=== PATIENT | female | born 1990 | race Caucasian/White ===

== ENCOUNTER 2018-07-29 12:16 | Emergency (ER) | payer SELFPAY ==
[~2018-07-29] VITALS: Ht 167.6 cm; Wt 82.6 kg
[2018-07-29 12:57] LABS: BASO % 0 % (0-3); EOS # 0.1 x10^3/uL (0.0-0.7); EOS % 2 % (0-3); HEMATOCRIT 44.6 % (36.0-47.0); HEMOGLOBIN 15.2 g/dL (12.0-15.5); LYMPH # 2.3 x10^3/uL (1.0-4.8); LYMPH % 34 % (24-48); MEAN CORPUSCULAR HEMOGLOBIN 32 pg (25-35); MEAN CORPUSCULAR HGB CONC 34 g/dL (31-37); MEAN CORPUSCULAR VOLUME 93 fL (79-100); MONO # 0.4 x10^3/uL (0.0-1.1); MONO % 6 % (0-9); NEUT # 3.9 x10^3uL (1.8-7.7); NEUT % 57 % (31-73); PLATELET COUNT 209 x10^3/uL (140-400); RED CELL DISTRIBUTION WIDTH 13.4 % (11.5-14.5); WHITE BLOOD COUNT 6.8 x10^3/uL (4.0-11.0)
--- NOTE | 2018-07-29 13:04 | RAD ---
CT HEAD WO CONTRAST History: NUMBNESS IN HANDS Comparison: None. Technique: Noncontrast CT imaging was performed of the head. Exposure: One or more of the following individualized dose reduction techniques were utilized for this examination: 1. Automated exposure control 2. Adjustment of the mA and/or kV according to patient size 3. Use of iterative reconstruction technique. Findings: No acute intracranial hemorrhage is identified. There is no intra-axial mass effect or midline shift. 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 Ventricular size is within normal limits. Visualized paranasal sinuses and mastoid air cells are aerated. Impression: 1. No acute intracranial hemorrhage is identified. 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 Electronically signed by: Kalyan Quiñones MD (07/29/2018 1:00 PM) [id number]
[2018-07-29 13:06] LABS: BARBITURATES NEG (NEG); BENZODIAZEPINES NEG (NEG); CANNABINOIDS NEG (NEG); COCAINE NEG (NEG); METHADONE NEG (NEG); OPIATES NEG (NEG); PHENCYCLIDINE NEG (NEG)
[2018-07-29 13:07] LABS: AMPHETAMINE/METHAMPHETAMINE NEG (NEG)
--- NOTE | 2018-07-29 13:11 | PHYS DOC ---
Past History Past Medical History: Migraines Past Surgical History: Other Alcohol Use: None Drug Use: None Adult General Chief Complaint Chief Complaint: DIZZY/LIGHT HEADED HPI HPI 28-year-old female presents with paresthesias. The patient has had intermittent bilateral hand paresthesias for several weeks. These have been minor and the patient has not been that concerned with it. She had a more severe episode couple weeks ago when the emergency room was diagnosed with dehydration and fatigue. 2 days ago the patient went to a primary physician with headaches and similar paresthesia it is intermittent. She was diagnosed with migraine variant and placed on Topamax. The patient took Topamax for 2 days. One hour prior to arrival, the patient had a more severe episode of paresthesia in her bilateral hands up her elbows as well as a feeling of upper facial numbness. The symptoms have mostly resolved at this time. She still has some slight tingling in her bilateral hands. She states feeling "foggy" overall. She denies fever or chills. She does have poor dentition, but does not feel that she has current abscesses. She has had some in the past. Review of Systems Review of Systems Constitutional: Denies fever or chills [] Eyes: Denies change in visual acuity, redness, or eye pain [] HENT: Denies nasal congestion or sore throat [] Respiratory: Denies cough or shortness of breath [] Cardiovascular: No additional information not addressed in HPI [] GI: Denies abdominal pain, nausea, vomiting, bloody stools or diarrhea [] : Denies dysuria or hematuria [] Musculoskeletal: Denies back pain or joint pain [] Integument: Denies rash or skin lesions [] Neurologic: Upper extremity and face numbness/tingling[] Endocrine: Denies polyuria or polydipsia [] All other systems were reviewed and found to be within normal limits, except as documented in this note. Physical Exam Physical Exam Constitutional: Well developed, well nourished, no acute distress, non-toxic appearance. [] HENT: Normocephalic, atraumatic, bilateral external ears normal, oropharynx moist, no oral exudates, nose normal. [] Eyes: PERRLA, EOMI, conjunctiva normal, no discharge. [] Neck: Normal range of motion, no tenderness, supple, no stridor. [] Cardiovascular:Heart rate regular rhythm, no murmur [] Lungs & Thorax: Bilateral breath sounds clear to auscultation [] Abdomen: Bowel sounds normal, soft, no tenderness, no masses, no pulsatile masses. [] Skin: Warm, dry, no erythema, no rash. [] Back: No tenderness, no CVA tenderness. [] Extremities: No tenderness, no cyanosis, no clubbing, ROM intact, no edema. [] Neurologic: Alert and oriented X 3, normal motor function, normal sensory function, no focal deficits noted. [] Psychologic: Affect normal, judgement normal, mood anxious. [] Current Patient Data Vital Signs Vital Signs Date Time Temp Pulse Resp B/P (MAP) Pulse Ox O2 Delivery O2 Flow Rate FiO2 07/29/18 12:20 98.0 97 22 98 Room Air Lab Results Laboratory Tests Test 07/29/18 12:30 07/29/18 12:41 Urine Opiates Screen Neg (NEG) Urine Methadone Screen Neg (NEG) Urine Barbiturates Neg (NEG) Urine Phencyclidine Screen Neg (NEG) Urine Amphetamine/Methamphetamine Neg (NEG) Urine Benzodiazepines Screen Neg (NEG) Urine Cocaine Screen Neg (NEG) Urine Cannabinoids Screen Neg (NEG) Urine Ethyl Alcohol Neg (NEG) White Blood Count 6.8 x10^3/uL (4.0-11.0) Red Blood Count 4.80 x10^6/uL (3.50-5.40) Hemoglobin 15.2 g/dL (12.0-15.5) Hematocrit 44.6 % (36.0-47.0) Mean Corpuscular Volume 93 fL (79-100) Mean Corpuscular Hemoglobin 32 pg (25-35) Mean Corpuscular Hemoglobin Concent 34 g/dL (31-37) Red Cell Distribution Width 13.4 % (11.5-14.5) Platelet Count 209 x10^3/uL (140-400) Neutrophils (%) (Auto) 57 % (31-73) Lymphocytes (%) (Auto) 34 % (24-48) Monocytes (%) (Auto) 6 % (0-9) Eosinophils (%) (Auto) 2 % (0-3) Basophils (%) (Auto) 0 % (0-3) Neutrophils # (Auto) 3.9 x10^3uL (1.8-7.7) Lymphocytes # (Auto) 2.3 x10^3/uL (1.0-4.8) Monocytes # (Auto) 0.4 x10^3/uL (0.0-1.1) Eosinophils # (Auto) 0.1 x10^3/uL (0.0-0.7) Basophils # (Auto) 0.0 x10^3/uL (0.0-0.2) EKG EKG [] Radiology/Procedures Radiology/Procedures [] Impressions: CT HEAD WO CONTRAST History: NUMBNESS IN HANDS Comparison: None. Technique: Noncontrast CT imaging was performed of the head. Exposure: One or more of the following individualized dose reduction techniques were utilized for this examination: 1. Automated exposure control 2. Adjustment of the mA and/or kV according to patient size 3. Use of iterative reconstruction technique. Findings: No acute intracranial hemorrhage is identified. There is no intra-axial mass effect or midline shift. 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 Ventricular size is within normal limits. Visualized paranasal sinuses and mastoid air cells are aerated. Impression: 1. No acute intracranial hemorrhage is identified. 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 Electronically signed by: Estrella Wallace MD (07/29/2018 1:00 PM) [facility] DICTATED AND SIGNED BY: ESTRELLA WALLACE MD DATE: 07/29/18 [id number] CC: LUCRECIA HERCULES DO; ЕКАТЕРИНА GRAFF DO Course & Med Decision Making Course & Med Decision Making Pertinent Labs and Imaging studies reviewed. (See chart for details) Patient's labs are unremarkable. Her head CT showed possible cerebellar tonsillar ectopia. I discussed the case with Dr. Ramirez, neurologist and he does not believe the patient needs to be admitted. He would like to see her as an outpatient. I have provided his office phone number and her discharge instructions. She is stable for discharge at this time. [] Dragon Disclaimer Dragon Disclaimer This electronic medical record was generated, in whole or in part, using a voice recognition dictation system. Departure Departure: Referrals: ЕКАТЕРИНА GRAFF DO (PCP) LUCRECIA HERCULES DO Jul 29, 2018 13:11
[2018-07-29 13:13] LABS: ALBUMIN 4.1 g/dL (3.4-5.0); ALBUMIN/GLOBULIN RATIO 1.2 (1.0-1.7); CALCIUM 9.2 mg/dL (8.5-10.1); CREATININE 0.7 mg/dL (0.6-1.0); GFR 100.4; POTASSIUM 3.5 mmol/L (3.5-5.1); TOTAL BILIRUBIN 0.5 mg/dL (0.2-1.0); TOTAL PROTEIN 7.6 g/dL (6.4-8.2)
[2018-07-29 13:14] LABS: BILIRUBIN,URINE NEG (NEG); CLARITY,URINE CLEAR; COLOR,URINE STRAW; GLUCOSE,URINE NEG (NEG); UROBILINOGEN,URINE 0.2 mg/dL (0.2 mg/dL)
[2018-07-29 13:15] LABS: BACTERIA,URINE FEW /HPF (0-FEW); NITRITE,URINE NEG (NEG); RBC,URINE 0 /HPF (0-2); SQUAMOUS EPITHELIAL CELL,UR FEW /LPF; WBC,URINE RARE /HPF (0-4)
[2018-07-29 14:42] VITALS: BP 148/92
== END 2018-07-29 14:30 | disposition home or self-care (01) ==
LOC: ER 12:16
DX: R20.2 Paresthesia of skin (principal); G43.909 Migraine, unspecified, not intractable, without status migrainosus
CPT/HCPCS: 36415; 70450; 80053; 80307; 81001; 85025; 99284-25

== ENCOUNTER 2018-08-04 10:35 | Emergency (ER) | payer SELFPAY ==
[~2018-08-04] VITALS: Ht 167.6 cm; Wt 84.0 kg
--- NOTE | 2018-08-04 11:28 | PHYS DOC ---
Past History Past Medical History: No Pertinent History Past Surgical History: Tonsillectomy, Other Alcohol Use: None Drug Use: None Adult General Chief Complaint Chief Complaint: MULTIPLE COMPLAINTS HPI HPI Patient is a 28-year-old female who presents to the emergency department for evaluation. She states that for the past several weeks she has been having intermittent episodes of paresthesias in her upper extremities bilaterally which seemed to be associated with position changes, going from laying to standing. She states that this morning, she had an episode that occurred when she was just laying on the couch. She came to the emergency department for evaluation. She was seen in the emergency department about a week ago and underwent a fairly extensive workup, including blood testing, as well as brain imaging, which was essentially negative, except for cerebellar tonsillar ectopia. The patient has not had any recent headaches. She states that she has had weakness in her left arm for the past several years after delivering her last child, but is not having any new symptoms currently. Her paresthesias, which prompted her visit to the emergency department today, have resolved. She is currently asymptomatic. She did see the neurologist after her last ER visit, who referred her to the emergency department today because the patient's mother called and said that her daughter was having strokelike symptoms. She has not had any lateralizing weakness. The patient states she does hyperventilate at times after these episodes, but does not have a previously diagnosed history of anxiety. Review of Systems Review of Systems Constitutional: Denies fever or chills [] Eyes: Denies change in visual acuity, redness, or eye pain [] HENT: Denies nasal congestion or sore throat [] Respiratory: Denies cough or shortness of breath [] Cardiovascular:The patient denies any shortness of breath, chest pain, palpitations, or orthopnea [] GI: Denies abdominal pain, nausea, vomiting, bloody stools or diarrhea [] : Denies dysuria or hematuria [] Musculoskeletal: Denies back pain or joint pain [] Integument: Denies rash or skin lesions [] Neurologic: As per history of present illness, otherwise negative [] Endocrine: Denies polyuria or polydipsia [] All other systems were reviewed and found to be within normal limits, except as documented in this note. Allergies Allergies Allergies Coded Allergies Type Severity Reaction Last Updated Verified Penicillins Allergy Intermediate vomiting 08/04/18 Yes Physical Exam Physical Exam PHYSICAL EXAM: CONSTITUTIONAL: Well developed, well nourished HEAD: normocephalic, atraumatic EENT: PERRL, EOMI. Conjunctivae normal color, sclerae non-icteric; moist mucous membranes. NECK: Supple, non-tender; no meningismus. There are no carotid bruits. LUNGS: Lungs CTA, breathing even and unlabored. Normal air movement. HEART: Regular rate and rhythm, no murmur CHEST: No deformity; non-tender ABDOMEN: The abdomen is soft, and non-tender, no masses or bruits. EXTREM: Normal ROM; no deformity, no calf tenderness. Normal pulses palpable in all extremities. There is no pedal edema. SKIN: No rash; no diaphoresis NEURO: Alert; normal speech and cognition; CN's grossly intact; strength grossly intact without focal deficit. Pinprick sensation is intact and symmetrical in all extremities. Reflexes are normal. BACK: No CVA TTP. Current Patient Data Vital Signs Vital Signs Date Time Temp Pulse Resp B/P (MAP) Pulse Ox O2 Delivery O2 Flow Rate FiO2 08/04/18 10:46 98.4 115 18 100 Room Air EKG EKG [] Radiology/Procedures Radiology/Procedures [] Course & Med Decision Making Course & Med Decision Making Patient's notes and test results from her recent ER visit have been reviewed. I also spoke with Dr. Obregon, the neurologist who has seen the patient after her last ER visit and the center to the emergency department today. We discussed the patient's care. He states he believes the patient needs an MRI, although as today, her neurological exam when he saw her was normal. He does not highly suspect that the cerebellar tonsillar ectopia is related to the patient's symptoms. The fact that she is having bilateral paresthesias make an ischemic etiology unlikely, especially given the patient's young age and lack of risk factors. I do not believe that any emergency testing is warranted at this time, given the essentially unremarkable workup of the patient recently had, and the time course of her symptoms progressing over several weeks. She is currently asymptomatic as well. I did discuss the importance of continued follow-up with her neurologist for further outpatient imaging and evaluation and return precautions. Dragon Disclaimer Dragon Disclaimer This electronic medical record was generated, in whole or in part, using a voice recognition dictation system. Departure Departure: Impression: Primary Impression: Paresthesias Disposition: 01 HOME, SELF-CARE Condition: STABLE Referrals: ЕКАТЕРИНА GRAFF DO (PCP) RUPA OBREGON MD Patient Instructions: Paresthesia Additional Instructions: Further outpatient evaluation is warranted. Additionally, outpatient imaging, such as brain MRI, is likely indicated. Please contact your neurologist office to arrange further evaluation. Return to medical care for any new or worsening symptoms, development of new muscle weakness, vision changes, each difficulty, or any other new, or concerning symptoms. CONCHIS DAILY MD Aug 04, 2018 11:28
[2018-08-04 12:56] VITALS: BP 106/70
== END 2018-08-04 12:56 | disposition home or self-care (01) ==
LOC: ER 10:35
DX: R20.2 Paresthesia of skin (principal); R53.1 Weakness; Z88.0 Allergy status to penicillin
CPT/HCPCS: 99281

== ENCOUNTER → 2020-10-05 | Outpatient (CLI) | payer MEDICAID, OTHER ==
--- NOTE | 2020-10-05 13:59 | RAD ---
Examination: Bilateral Limited breast ultrasound. INDICATION: 30-year-old non 1 presents for imaging evaluation of bilateral areas of palpable tenderness present for the past 3 months. Since initial observation, she reports the right breast is no longer tender but still palpable (but decreasing in size) while the left breast is no longer palpa ble but still exhibits residual soreness. No family history of breast malignancy. COMPARISON: None. TECHNIQUE: Targeted ultrasound of both breasts in the areas of clinical concern as reported by the pa tient was warned including ultrasound of the retroareolar and axillary regions of both breasts. FINDINGS: In the right breast, the area of residual palpable concern correlates with increased echogenicity to a superficial fat lobule measuring 2.7 x 0.5 x 2.0 cm. This shows no internal vascularity. Subareolar right breast and right axilla are sonographically unremarkable. In the left breast, no sonographic findings are identified. Boat Hoist Operator images of the patient's re ported area of concern spanning the 12-2 o'clock positions were obtained. The left subareolar breast and axilla were unremarkable. IMPRESSION: Benign sonographic findings on targeted ultrasound of both breasts. No evidence of malignancy. BI-RADS category 2 Benign findings Recommend clinical management which may include biopsy if there are any clinically suspicious finding s. In the absence of any clinically suspicious findings, recommend age-appropriate routine screening, st arting at age 40 in average risk women. Electronically signed by: Rob England MD (10/05/2020 1:57 PM) [id number]
== END ==
LOC: US 12:45
PROVIDERS: ATTEND Family Medicine
DX: R92.8 Other abnormal and inconclusive findings on diagnostic imaging of breast (principal)
CPT/HCPCS: 76641

== ENCOUNTER 2020-12-22 13:12 | Emergency (ER) | payer OTHER ==
[~2020-12-22] VITALS: Ht 167.6 cm; Wt 84.0 kg
--- NOTE | 2020-12-22 13:38 | EKG ---
[address] [address] Test Date: 2020-12-22 Test Time: 13:16:48 Pat Name: NOAH CASON Department: Room: Gender: F Sample Dye Mixer: STEVE : 1990 Requested By: CYRIL BRITO Order Number: [id number] Reading MD: Measurements Intervals Garner Rate: 108 P: 38 TN: 144 QRS: 52 QRSD: 64 T: 70 QT: 332 QTc: 449 Interpretive Statements SINUS TACHYCARDIA NO SPECIFIC ECG ABNORMALITIES RI6.02 No previous ECG available for comparison
[2020-12-22 13:51] LABS: BASO % 1 % (0-3); EOS # 0.1 x10^3/uL (0.0-0.7); EOS % 2 % (0-3); HEMATOCRIT 45.3 % (36.0-47.0); HEMOGLOBIN 15.5 g/dL (12.0-15.5); LYMPH # 3.2 x10^3/uL (1.0-4.8); LYMPH % 51 % (24-48); MEAN CORPUSCULAR HEMOGLOBIN 32 pg (25-35); MEAN CORPUSCULAR HGB CONC 34 g/dL (31-37); MEAN CORPUSCULAR VOLUME 94 fL (79-100); MONO # 0.4 x10^3/uL (0.0-1.1); MONO % 6 % (0-9); NEUT # 2.6 x10^3uL (1.8-7.7); NEUT % 41 % (31-73); PLATELET COUNT 185 x10^3/uL (140-400); RED BLOOD COUNT 4.83 x10^6/uL (3.50-5.40); RED CELL DISTRIBUTION WIDTH 12.9 % (11.5-14.5); WHITE BLOOD COUNT 6.3 x10^3/uL (4.0-11.0)
[2020-12-22 13:59] LABS: CALCIUM 9.4 mg/dL (8.5-10.1); CREATININE 0.6 mg/dL (0.6-1.0); GFR 118.2; POTASSIUM 3.7 mmol/L (3.5-5.1)
[2020-12-22 14:05] LABS: ALBUMIN/GLOBULIN RATIO 1.3 (1.0-1.7); TOTAL BILIRUBIN 0.7 mg/dL (0.2-1.0); TOTAL PROTEIN 7.2 g/dL (6.4-8.2)
--- NOTE | 2020-12-22 14:18 | RAD ---
EXAMINATION: XR CHEST 2V CLINICAL HISTORY: Chest tightness EXAM DATE/TIME: 12/22/2020 1:58 PM COMPARISON: None FINDINGS: Lines, Tubes, and Devices: None. Cardiomediastinal Silhouette: Within normal limits. Lungs and Pleura: No evidence of focal airspace consolidation or pleural effusion. Pulmonary vasculat ure unremarkable. Bones and Soft Tissues: No acute osseous abnormality. IMPRESSION: No evidence of acute cardiopulmonary abnormality. Electronically signed by: Fuad Warren DO (12/22/2020 2:16 PM) [id number]
--- NOTE | 2020-12-22 14:22 | RAD ---
EXAMINATION: CT HEAD AND C-SPINE WO CLINICAL HISTORY: Near syncope, extremity tingling TECHNIQUE: Serial axial images without IV contrast were obtained from the vertex to the foramen magnum. CT of the cervical spine without IV contrast. Spiral, high resolution axial images were obtained from the skull base to the cervicothoracic junction with sagittal and coronal planar reconstructions. CT Dose Reduction Employed: One or more of the following individualized dose reduction techniques wer e utilized for this examination: 1. Automated exposure control 2. Adjustment of the mA and/or kV ac cording to patient size 3. Use of iterative reconstruction technique. COMPARISON: CT head 07/29/2018 FINDINGS: BRAIN: Acute Change: No evidence of an acute contusion or other acute parenchymal process. Hemorrhage: No evidence of acute intracranial hemorrhage. Mass Lesion/Mass Effect: No evidence of intracranial mass or extraaxial fluid collection. No signific ant mass effect. Chronic Change: Redemonstration of mild tonsillar ectopia. Parenchyma: Parenchyma otherwise within normal limits for age. Ventricles: Ventricles within normal limits for age. Paranasal Sinuses and Skull Base: Visualized paranasal sinuses clear. No evidence of acute calvarial fracture. C-SPINE: Alignment: Normal anatomic alignment. Osseous Structures: No evidence of acute fracture or spondylolisthesis. Degenerative Changes: No significant degenerative changes. Cervical Soft Tissues: Paraspinal soft tissues unremarkable with no prevertebral soft tissue swelling . IMPRESSION: BRAIN: No evidence of acute intracranial abnormality. C-SPINE: No evidence of acute osseous abnormality involving the cervical spine. Electronically signed by: Fuad Warren DO (12/22/2020 2:20 PM) [id number]
[2020-12-22] MEDS ORDERED: IOHEXOL 350 MG/ML 100 ML VIAL. IV ONE (15:00)
--- NOTE | 2020-12-22 15:41 | RAD ---
PQRS Compliance Statement: One or more of the following individualized dose reduction techniques were utilized for this examinat ion: 1. Automated exposure control 2. Adjustment of the mA and/or kV according to patient size 3. Use of iterative reconstruction technique Exam performed: CT pulmonary angiogram of the chest with contrast. Date: 12/22/2020. Comparison:Chest x-ray from earlier today Indication: Chest tightness. Elevated d-dimer Technique: Contiguous helical acquisitions are obtained through the chest during intravenous administ ration of [ 20 cc of Isovue-370 . [Sagittal and coronal reformatted images and ] MIP images were obtained and reviewed Findings: Diagnostic quality: Adequate. Pulmonary emboli: None seen Right heart strain: None Pulmonary arteries: Normal in caliber Heart/Systemic Vasculature: Heart is normal in size. Aorta is normal in caliber Mediastinum: No mediastinal or hilar adenopathy seen. Lungs: Well-expanded and clear. Neck/Axilla/Body Wall: No definite neck or axillary adenopathy seen. Upper Abdomen: Grossly unremarkable Bones: Normal Miscellaneous: None Impression: 1. Study is negative for pulmonary embolism. 2. No other abnormality noted. Electronically signed by: Jeri Plummer MD (12/22/2020 3:38 PM) [facility]
--- NOTE | 2020-12-22 16:33 | PHYS DOC ---
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 (CYRIL BRITO APRN) Past Surgical History: Tonsillectomy, Tubal ligation, Other Additional Past Surgical Histo: uterine inversion 2014 (CYRIL BRITO APRN) Alcohol Use: Rarely Drug Use: None (CYRIL BRITO APRN) Adult General Chief Complaint Chief Complaint: CHEST PAIN HPI HPI Patient is a 30-year-old female who presents to the emergency department reporting off-and-on chest tightness for the past 2 days, states that she has off-and-on arm tingling and numbness for several years now patient states that she has an MRI scheduled in 2 weeks, states she has an appointment to see her primary care provider Viet Irene soon but could not take the numbness and tingling any longer and came to the emergency department for reevaluation of her symptoms. Patient states that her symptoms resolved while in route to the emergency department today. 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 Patient feels like she is going to pass out at times. Patient reports her symptoms have been off and on for 2 to 3 years now. Patient denies any current nausea, vomiting, diarrhea, denies chest tightness or chest pain at this time. Patient denies any shortness of breath. Patient currently denies any numbness or tingling to her extremities. Patient denies any recent illnesses, denies fever or chills. Patient reports her last menstrual cycle ended 2 weeks ago with normal duration of flow, denies any allergies to medications, states she takes no prescription or [id number] medications at home. Patient reports a past surgical history of a tonsillectomy when she was 11 years old, had a uterine inversion with tubal ligation surgery in 2014. Patient denies any other physical complaints or physical concerns. (CYRIL BRITO APRN) Review of Systems Review of Systems 14 body systems of review of systems have been reviewed. See HPI for pertinent positives and negative responses, otherwise all other systems are negative, nonpertinent or noncontributory. (CYRIL BRITO APRN) Current Medications Current Medications Current Medications Medications (Trade) Dose Ordered Sig/Daisy Start Time Stop Time Status Last Admin Dose Admin Iohexol (Omnipaque 350 Mg/ml) 100 ml 1X ONCE 12/22/20 15:00 12/22/20 15:01 DC (CYRIL BRITO APRN) Allergies Allergies Allergies Coded Allergies Type Severity Reaction Last Updated Verified Penicillins Allergy Intermediate vomiting 08/04/18 Yes (CYRIL BRITO APRN) Physical Exam Physical Exam Constitutional: Well developed, well nourished, no acute distress, non-toxic appearance. 30-year-old female no apparent distress. HENT: Normocephalic, atraumatic, bilateral external ears normal, oropharynx moist, no oral exudates, nose normal. Bilateral TMs within normal limits, bilateral external auditory canals within normal limits, no drainage from nasal turbinates, nasal turbinates within normal limits. No drooling, no trismus appreciated. Eyes: PERRLA, EOMI, conjunctiva normal, no discharge. Satisfactory 6 cardinal eye movements. Neck: Normal range of motion, no tenderness, supple, no stridor. Pain to palpation at base of skull. No nuchal rigidity, no meningismus signs. Cardiovascular:Heart rate regular rhythm, no murmur, heart sounds S1-S2 to auscultation, heart rate is tachycardic during physical examination. Lungs & Thorax: Bilateral breath sounds clear to auscultation no adventitious lung sounds appreciated. Abdomen: Bowel sounds normal, soft, no tenderness, no masses, no pulsatile masses. Skin: Warm, dry, no erythema, no rash. Back: No tenderness, no CVA tenderness. Extremities: No tenderness, no cyanosis, no clubbing, ROM intact, no edema. Neurologic: Alert and oriented X 3, normal motor function, normal sensory function, no focal deficits noted. Psychologic: Affect normal, judgement normal, mood normal. (CYRIL BRITO APRN) Current Patient Data Vital Signs Vital Signs Date Time Temp Pulse Resp B/P (MAP) Pulse Ox O2 Delivery O2 Flow Rate FiO2 12/22/20 13:20 98.4 96 20 117/74 (88) 100 Room Air Lab Results Laboratory Tests Test 12/22/20 13:35 White Blood Count 6.3 x10^3/uL Red Blood Count 4.83 x10^6/uL Hemoglobin 15.5 g/dL Hematocrit 45.3 % Mean Corpuscular Volume 94 fL Mean Corpuscular Hemoglobin 32 pg Mean Corpuscular Hemoglobin Concent 34 g/dL Red Cell Distribution Width 12.9 % Platelet Count 185 x10^3/uL Neutrophils (%) (Auto) 41 % Lymphocytes (%) (Auto) 51 % Monocytes (%) (Auto) 6 % Eosinophils (%) (Auto) 2 % Basophils (%) (Auto) 1 % Neutrophils # (Auto) 2.6 x10^3uL Lymphocytes # (Auto) 3.2 x10^3/uL Monocytes # (Auto) 0.4 x10^3/uL Eosinophils # (Auto) 0.1 x10^3/uL Basophils # (Auto) 0.0 x10^3/uL D-Dimer (Corin) 0.53 mg/L Sodium Level 144 mmol/L Potassium Level 3.7 mmol/L Chloride Level 106 mmol/L Carbon Dioxide Level 24 mmol/L Anion Gap 14 Blood Urea Nitrogen 6 mg/dL Creatinine 0.6 mg/dL Estimated GFR (Cockcroft-Gault) 118.2 BUN/Creatinine Ratio 10 Glucose Level 119 mg/dL Calcium Level 9.4 mg/dL Total Bilirubin 0.7 mg/dL Aspartate Amino Transf (AST/SGOT) 26 U/L Alanine Aminotransferase (ALT/SGPT) 44 U/L Alkaline Phosphatase 108 U/L Troponin I Quantitative < 0.017 ng/mL Total Protein 7.2 g/dL Albumin 4.0 g/dL Albumin/Globulin Ratio 1.3 Current Medications Medications (Trade) Dose Ordered Sig/Daisy Route PRN Reason Start Time Stop Time Status Last Admin Dose Admin Iohexol (Omnipaque 350 Mg/ml) 100 ml 1X ONCE IV 12/22/20 15:00 12/22/20 15:01 DC Laboratory Tests Test 12/22/20 13:35 White Blood Count 6.3 x10^3/uL (4.0-11.0) Red Blood Count 4.83 x10^6/uL (3.50-5.40) Hemoglobin 15.5 g/dL (12.0-15.5) Hematocrit 45.3 % (36.0-47.0) Mean Corpuscular Volume 94 fL (79-100) Mean Corpuscular Hemoglobin 32 pg (25-35) Mean Corpuscular Hemoglobin Concent 34 g/dL (31-37) Red Cell Distribution Width 12.9 % (11.5-14.5) Platelet Count 185 x10^3/uL (140-400) Neutrophils (%) (Auto) 41 % (31-73) Lymphocytes (%) (Auto) 51 % (24-48) H Monocytes (%) (Auto) 6 % (0-9) Eosinophils (%) (Auto) 2 % (0-3) Basophils (%) (Auto) 1 % (0-3) Neutrophils # (Auto) 2.6 x10^3uL (1.8-7.7) Lymphocytes # (Auto) 3.2 x10^3/uL (1.0-4.8) Monocytes # (Auto) 0.4 x10^3/uL (0.0-1.1) Eosinophils # (Auto) 0.1 x10^3/uL (0.0-0.7) Basophils # (Auto) 0.0 x10^3/uL (0.0-0.2) D-Dimer (Corin) 0.53 mg/L (0.00-0.50) H Sodium Level 144 mmol/L (136-145) Potassium Level 3.7 mmol/L (3.5-5.1) Chloride Level 106 mmol/L (98-107) Carbon Dioxide Level 24 mmol/L (21-32) Anion Gap 14 (6-14) Blood Urea Nitrogen 6 mg/dL (7-20) L Creatinine 0.6 mg/dL (0.6-1.0) Estimated GFR (Cockcroft-Gault) 118.2 BUN/Creatinine Ratio 10 (6-20) Glucose Level 119 mg/dL (70-99) H Calcium Level 9.4 mg/dL (8.5-10.1) Total Bilirubin 0.7 mg/dL (0.2-1.0) Aspartate Amino Transferase (AST) 26 U/L (15-37) Alanine Aminotransferase (ALT) 44 U/L (14-59) Alkaline Phosphatase 108 U/L (46-116) Troponin I Quantitative < 0.017 ng/mL (0-0.055) Total Protein 7.2 g/dL (6.4-8.2) Albumin 4.0 g/dL (3.4-5.0) Albumin/Globulin Ratio 1.3 (1.0-1.7) (CYRIL BRITO APRN) EKG EKG EKG performed at 1316 by house respiratory therapy staff shows a heart rate of 108 bpm sinus tachycardia without other ectopy, ID interval 0.144, QTc interval 0.449, no acute STEMI, no ACS, no acute ischemia appreciated, EKG interpreted by ED attending physician Dr. Hercules. (CYRIL BRITO APRN) Radiology/Procedures Radiology/Procedures PATIENT: NOAH CASON ACCOUNT: [id number] : 1990 LOCATION: ER AGE: 30 SEX: F EXAM STATUS: REG ER ORD. PHYSICIAN: CYRIL BRITO APRN REASON: CHEST TIGHTNESS PROCEDURE: CHEST PA & LATERAL EXAMINATION: XR CHEST 2V CLINICAL HISTORY: Chest tightness EXAM DATE/TIME: 12/22/2020 1:58 PM COMPARISON: None FINDINGS: Lines, Tubes, and Devices: None. Cardiomediastinal Silhouette: Within normal limits. Lungs and Pleura: No evidence of focal airspace consolidation or pleural effusion. Pulmonary vasculature unremarkable. Bones and Soft Tissues: No acute osseous abnormality. IMPRESSION: No evidence of acute cardiopulmonary abnormality. Electronically signed by: Fuad Georges DO (12/22/2020 2:16 PM) [id number] DICTATED AND SIGNED BY: FUAD GEORGES DO DATE: 12/22/20 1415 CC: CYRIL BRITO APRN; ARTHUR IRENE PA ~MTH0 0 PATIENT: NOAH CASON ACCOUNT: [id number] : 1990 LOCATION: ER AGE: 30 SEX: F EXAM STATUS: REG ER ORD. PHYSICIAN: CYRIL BRITO APRN REASON: NEAR SYNCOPE, EXTREMITY TINGLING PROCEDURE: CT HEAD AND CERVICAL SPINE WO EXAMINATION: CT HEAD AND C-SPINE WO CLINICAL HISTORY: Near syncope, extremity tingling TECHNIQUE: Serial axial images without IV contrast were obtained from the vertex to the foramen magnum. CT of the cervical spine without IV contrast. Spiral, high resolution axial images were obtained from the skull base to the cervicothoracic junction with sagittal and coronal planar reconstructions. CT Dose Reduction Employed: One or more of the following individualized dose reduction techniques were utilized for this examination: 1. Automated exposure control 2. Adjustment of the mA and/or kV according to patient size 3. Use of iterative reconstruction technique. COMPARISON: CT head 07/29/2018 FINDINGS: BRAIN: Acute Change: No evidence of an acute contusion or other acute parenchymal process. Hemorrhage: No evidence of acute intracranial hemorrhage. Mass Lesion/Mass Effect: No evidence of intracranial mass or extraaxial fluid collection. No significant mass effect. Chronic Change: Redemonstration of mild tonsillar ectopia. Parenchyma: Parenchyma otherwise within normal limits for age. Ventricles: Ventricles within normal limits for age. Paranasal Sinuses and Skull Base: Visualized paranasal sinuses clear. No evidence of acute calvarial fracture. C-SPINE: Alignment: Normal anatomic alignment. Osseous Structures: No evidence of acute fracture or spondylolisthesis. Degenerative Changes: No significant degenerative changes. Cervical Soft Tissues: Paraspinal soft tissues unremarkable with no prevertebral soft tissue swelling. IMPRESSION: BRAIN: No evidence of acute intracranial abnormality. C-SPINE: No evidence of acute osseous abnormality involving the cervical spine. Electronically signed by: Fuad Georges DO (12/22/2020 2:20 PM) [id number] DICTATED AND SIGNED BY: FUAD GEORGES DO DATE: 12/22/20 1416 PATIENT: NOAH CASON ACCOUNT: [id number] : 1990 LOCATION: ER AGE: 30 SEX: F EXAM STATUS: REG ER ORD. PHYSICIAN: CYRIL BRITO APRN REASON: CHEST TIGHTNESS WITH ELEVATED D-DIMER PROCEDURE: CT ANGIOGRAPHY CHEST PQRS Compliance Statement: One or more of the following individualized dose reduction techniques were utilized for this examination: 1. Automated exposure control 2. Adjustment of the mA and/or kV according to patient size 3. Use of iterative reconstruction technique Exam performed: CT pulmonary angiogram of the chest with contrast. Date: 12/22/2020. Comparison:Chest x-ray from earlier today Indication: Chest tightness. Elevated d-dimer Technique: Contiguous helical acquisitions are obtained through the chest during intravenous administration of [ 20 cc of Isovue-370 . [Sagittal and coronal reformatted images and ] MIP images were obtained and reviewed Findings: Diagnostic quality: Adequate. Pulmonary emboli: None seen Right heart strain: None Pulmonary arteries: Normal in caliber Heart/Systemic Vasculature: Heart is normal in size. Aorta is normal in caliber Mediastinum: No mediastinal or hilar adenopathy seen. Lungs: Well-expanded and clear. Neck/Axilla/Body Wall: No definite neck or axillary adenopathy seen. Upper Abdomen: Grossly unremarkable Bones: Normal Miscellaneous: None Impression: 1. Study is negative for pulmonary embolism. 2. No other abnormality noted. Electronically signed by: Jeri Plummer MD (12/22/2020 3:38 PM) [facility] DICTATED AND SIGNED BY: JERI PLUMMER MD DATE: 12/22/20 4060 CC: CYRIL BRITO APRN; ARTHUR IRENE ~MTH0 0 (CYRIL BRITO APRN) Heart Score C/O Chest Pain: No Risk Factors: Risk Factors: DM, Current or recent (<one month) smoker, HTN, HLP, family history of CAD, obesity. Risk Scores: Risk Factors: DM, Current or recent (<one month) smoker, HTN, HLP, family history of CAD, obesity. (CYRIL BRITO APRN) Course & Med Decision Making Course & Med Decision Making Pertinent Labs and Imaging studies reviewed. (See chart for details) 30-year-old female, vital signs reviewed, presents to the emergency department with 3 years of on and off chest tightness and upper extremity numbness and tingling with feelings of near syncope. Physical examination was unremarkable. Related to patient's symptoms will order orthostatic blood pressures, EKG, cardiopulmonary work-up. Patient is seeing Aaron Irene for primary care and Dr. Obregon for neurology. Patient has MRI scheduled for 2 weeks. Orthostatic blood pressures performed by ED nursing staff, the patient was not orthostatic, had no orthostatic complaints, vital signs within normal limits. EKG negative for cardiac concerns, troponin I within normal limits and was not elevated, chest x-ray negative for acute pulmonary process, CT head and C-spine consistent with CT head from 3 years ago, no new findings, no changes with patient's Chiari malformation. Patient's D-dimer elevated, with patient's complaint of chest tightness and initial presentation of tachycardia in the emergency department, discussed with patient will order CT angio chest to rule out pulmonary emboli. Patient amenable to this plan. CT angio chest negative for pulmonary emboli, reevaluation of the patient finds patient nontoxic in appearance, in no apparent distress. Discussed with patient to follow-up with primary care Aaron Irene to let him know of ED visit to day, encourage patient to keep her future neurology appointments, and to keep her MRI appointment in 2 weeks. Patient gave verbal understanding of discharge home instructions, follow-up with primary care this week, see her neurologist soon, keep her MRI appointments, return to ER precautions and concerns, patient was discharged home without incident. (CYRIL BRITO APRN) Dragon Disclaimer Dragon Disclaimer This electronic medical record was generated, in whole or in part, using a voice recognition dictation system. (CYRIL BRITO APRN) Attending Co-Sign The patient was seen and interviewed as well as examined at the bedside. The chart was reviewed. The case was discussed. Agree with the plan of care. (LUCRECIA HERCULES DO) Departure Departure: Impression: Primary Impression: History of Chiari malformation Additional Impression: Feeling of chest tightness Disposition: 01 HOME / SELF CARE / HOMELESS Condition: GOOD Referrals: ARTHUR IRENE (PCP) RUPA OBREGON MD Additional Instructions: You were seen today for feelings of tightness in your chest, numbness and tingling to your upper extremities. A extensive cardiopulmonary work-up and neurological work-up was performed today, there were no concerning findings that would warrant an admission to the hospital or immediate attention by a hospice massage therapist, neurologist, or neurosurgeon. You have a history of a Chiari malformation, you are currently being worked up by Dr. Obregon and have an MRI for further evaluation coming soon in 2 weeks. As we discussed, please follow-up with your primary care provider Viet Irene and discussed with him your anxieties related to your upcoming MRI as he may consider anxiety medications to assist you with this process. Please make an appointment this Thursday to see your primary care provider. These return to the emergency department for worsening symptoms or other concerns. EMERGENCY DEPARTMENT GENERAL DISCHARGE INSTRUCTIONS Thank you for coming to [facility] (ED) today and trusting us with you care. We trust that you had a positivie experience in our Emergency Department. If you wish to speak to the department management, you may call the director at [phone]. YOUR FOLLOW UP INSTRUCTIONS ARE FOLLOWS: 1. Do you have a private Doctor? If you do not have a private doctor, please ask for a resource list of physicians or clinics that may be able to assist you with follow up care. 2. The Emergency Physician has interpreted your x-rays. The X-Ray specialist will also review them. If there is a change in the findings, you will be notified in 48 hours when at all possible. 3. A lab test or culture has been done, your results will be reviewed and you will be notified if you need a change in treatment. ADDITIONAL INSTRUCTIONS AND INFORMATION: 1. Your care today has been supervised by a physician who is specially trained in emergency care. Many problems require more than one evaluation for a complete diagnosis and treatment. We recommend that you schedule your follow up appointment as recommended to ensure complete treatment of you illness or injury. If you are unable to obtain follow up care and continue to have a problem, or if your condition worsens, we recommend that you return to the ED. 2. We are not able to safely determine your condition over the phone nor are we able to give sound medical advice over the phone. For these safety reasons, if you call for medical advice we will ask you to come to the ED for further evaluation. 3. If you have any questions regarding these discharge instructions please call the ED at [phone]. SAFETY INFORMATION: In the interest of safety, wellness, and injury prevention; we encourage you to wear your sealbelt, if you smoke; quite smoking, and we encourage family to use a protective helmet for bicycling and other sporting events that present an increased risk for head injury. IF YOUR SYMPTOMS WORSEN OR NEW SYMPTOMS DEVELOP, OR YOU HAVE CONCERNS ABOUT YOUR CONDITION; OR IF YOUR CONDITION WORSENS WHILE YOU ARE WAITING FOR YOUR FOLLOW UP APPOINTMENT; EITHER CONTACT YOUR PRIMARY CARE DOCTOR, THE PHYSICIAN WHOSE NAME AND NUMBER YOU WERE GIVEN, OR RETURN TO THE ED IMMEDIATELY. Problem Qualifiers CYRIL BRITO APRN December 22, 2020 16:32 LUCRECIA HERCULES DO December 24, 2020 12:16
[2020-12-22 16:55] VITALS: BP 126/70
== END 2020-12-22 16:55 | disposition home or self-care (01) ==
LOC: ER 13:12
DX: R07.89 Other chest pain (principal); R55 Syncope and collapse; Z87.798 Personal history of other (corrected) congenital malformations; Z88.0 Allergy status to penicillin; Z98.51 Tubal ligation status
CPT/HCPCS: 36415; 70450; 71046; 71275; 72125; 80053; 84484; 85025; 85379; 93005; 99285-25